=== PATIENT | female | born 1970 | race Caucasian/White ===

== ENCOUNTER 2022-01-06 15:39 | Emergency (ER) | payer BC ==
[2022-01-06] MEDS ORDERED: HYDR-3965 PO (19:43)
== END 2022-01-06 16:29 | disposition left against medical advice (07) ==
LOC: ER 15:40
DX: M79.609 Pain in unspecified limb (principal); Z53.21 Procedure and treatment not carried out due to patient leaving prior to being seen by health care provider

== ENCOUNTER 2022-01-06 16:58 | Emergency (ER) | payer BC ==
[~2022-01-06] VITALS: Ht 162.6 cm; Wt 65.0 kg
[2022-01-06] MEDS ORDERED: HYDROcodone/acetaminophen 5mg/325mg tablet PO ONE (18:15)
[2022-01-06] MEDS ORDERED: LIDOcaine 1% W/epiNEPHrine 1:100,000 20ml vial SQ ONE (18:20)
[2022-01-06] MEDS ORDERED: LIDOcaine 1% w/EPI 1:100,000 30ml vial (MDV) SQ ONE (18:45)
[2022-01-06 19:15] VITALS: BP 140/81
[2022-01-06] MEDS ORDERED: HYDR-3965 PO (19:43)
== END 2022-01-06 20:15 | disposition home or self-care (01) ==
LOC: ER 16:59
DX: S52.502A Unspecified fracture of the lower end of left radius, initial encounter for closed fracture (principal); M25.532 Pain in left wrist; Z98.890 Other specified postprocedural states; Z79.899 Other long term (current) drug therapy; W19.XXXA Unspecified fall, initial encounter; Y93.89 Activity, other specified; Y92.89 Other specified places as the place of occurrence of the external cause; Y99.8 Other external cause status
CPT/HCPCS: 25605; 73100; 73110; 99284